=== PATIENT | male | born 1935 | race Caucasian/White ===

== ENCOUNTER → 2021-11-24 | Outpatient (CLI) | payer MEDICARE ==
--- NOTE | 2021-11-24 10:44 | Diagnostic Imaging Report ---
EXAMINATION: Abdominal aortic ultrasound. INDICATION: Abdominal aortic aneurysm. COMPARISON: There are no prior studies available for comparison. FINDINGS: There is aneurysmal dilatation of the mid abdominal aorta. The aorta measures approximately 3.7 x 4.5 cm in maximum AP and transverse diameters in this region (normal 3.0 x 3.0 cm or less). The distal abdominal aorta is not abnormally dilated measuring 2.3 x 2.3 cm. The proximal aorta measures 1.8 x 1.7 cm. There is mild dilatation of the origins of both common iliac arteries. The right common iliac artery measures 1.7 x 1.3 while the left is estimated to be 1.2 x 1.3 cm (normal 1.0 x 1.0 cm or less). There is no acute abnormality of the aorta. IMPRESSION: 1. 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 The aneurysm measures 3.7 x 4.5 cm. 2. There is no other aneurysmal dilatation of the infrarenal abdominal aorta. 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 3. There is no acute abnormality identified. Dictated by: Dictated on workstation # [id number]
== END ==
LOC: RAD 08:30
PROVIDERS: ATTEND Internal Medicine Cardiovascular Disease
DX: I71.4 Abdominal aortic aneurysm, without rupture (principal); I72.3 Aneurysm of iliac artery; I25.10 Atherosclerotic heart disease of native coronary artery without angina pectoris
CPT/HCPCS: 76775

== ENCOUNTER 2023-02-11 15:01 | Emergency (ER) | payer MEDICARE ==
[~2023-02-11] VITALS: Ht 177.8 cm; Wt 65.8 kg
--- NOTE | 2023-02-11 15:27 | ED GI ---
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 The patient has had dark stool for over a month. 3 weeks ago, his children witnessed the stool, and they did a home test for blood which was positive. Had blood work done at and the results came back earlier this week. Reportedly his hemoglobin was around 8 at that time. He has been feeling generally more weak, and now is using a walker, previously walked without difficulty. Called the clinic because he was not looking well, and they referred him here. Otherwise denying any chest pain, shortness of breath, abdominal pain, nausea, vomiting, diarrhea, fever, chills, focal weakness or numbness, or any other concerns. He has not been on any blood thinners for a few months, takes no NSAIDs, does not take aspirin. Denies any history of liver disease and does not drink alcohol. Allergies and Home Medications Allergies Coded Allergies: No Known Drug Allergies (Unverified , 02/11/23) Patient Home Medication List Home Medication List Reviewed: Yes Pantoprazole Sodium (Protonix) 40 Mg Tablet.dr 40 MG PO DAILY Prescribed by: RAMAN GARCIA on 02/11/23 1603 Review of Systems Review of Systems Constitutional: No fever EENTM: No Symptoms Reported Respiratory: No Symptoms Reported Cardiovascular: No Symptoms Reported Gastrointestinal: See HPI Genitourinary: No Symptoms Reported Musculoskeletal: no symptoms reported Skin: no symptoms reported Psychiatric/Neurological: Other (General weakness) Endocrine: No Symptoms Reported Hematologic/Lymphatic: No Symptoms Reported Past Sgqyaie-Gvwjtg-Akoqlv Hx Patient Social History Tobacco Use?: No Past Medical History Surgery/Hospitalization HX: CABG, partial bowel resection s/p diverticulitis Surgeries: Yes Physical Exam Vital Signs Vital Signs - First Documented 02/11/23 15:25 Temp 36.3 Pulse 68 Resp 16 B/P (MAP) 110/50 (70) Pulse Ox 100 O2 Delivery Room Air Capillary Refill : Height/Weight/BMI Height: '" Weight: lbs. oz. kg; BMI Method: General Appearance: WD/WN, no apparent distress, other (Pale) HEENT: PERRL/EOMI, normal ENT inspection, pharynx normal Neck: non-tender, full range of motion, supple, normal inspection Respiratory: chest non-tender, lungs clear, normal breath sounds, no respiratory distress, no accessory muscle use Cardiovascular: no edema, no murmur, irregularly irregular Gastrointestinal: normal bowel sounds, non tender, soft; No distended, No guarding, No rebound Rectal: other (External hemorrhoid, stool is brown and Hemoccult negative) Extremities: normal range of motion, non-tender, normal inspection, no pedal edema, no calf tenderness, normal capillary refill Back: normal inspection, no CVA tenderness Neurologic/Psychiatric: no motor/sensory deficits, alert, normal mood/affect Skin: warm/dry, other (Pale) Progress/Results/Core Measures Results/Orders Lab Results Laboratory Tests Test 02/11/23 15:38 02/11/23 15:39 Range/Units Prothrombin Time 14.3 12.2-14.7 SEC INR Comment 1.1 0.8-1.4 Activated Partial Thromboplast Time 34 24-35 SEC Sodium Level 136 135-145 MMOL/L Potassium Level 4.3 3.6-5.0 MMOL/L Chloride Level 106 98-107 MMOL/L Carbon Dioxide Level 13 L 21-32 MMOL/L Anion Gap 17 H 5-14 MMOL/L Blood Urea Nitrogen 65 H 7-18 MG/DL Creatinine 4.87 H 0.60-1.30 MG/DL Estimat Glomerular Filtration Rate 11 BUN/Creatinine Ratio 13 Glucose Level 189 H 70-105 MG/DL Calcium Level 7.9 L 8.5-10.1 MG/DL Corrected Calcium 8.2 L 8.5-10.1 MG/DL Total Bilirubin 0.2 0.1-1.0 MG/DL Aspartate Amino Transf (AST/SGOT) 127 H 5-34 U/L Alanine Aminotransferase (ALT/SGPT) 34 0-55 U/L Alkaline Phosphatase 204 H 40-136 U/L Total Protein 6.6 6.4-8.2 GM/DL Albumin 3.6 3.2-4.5 GM/DL Lipase 18 8-78 U/L White Blood Count 9.4 4.3-11.0 10^3/uL Red Blood Count 2.82 L 4.30-5.52 10^6/uL Hemoglobin 8.9 L 13.3-17.7 g/dL Hematocrit 27 L 40-54 % Mean Corpuscular Volume 95 80-99 fL Mean Corpuscular Hemoglobin 32 25-34 pg Mean Corpuscular Hemoglobin Concent 33 32-36 g/dL Red Cell Distribution Width 14.5 10.0-14.5 % Platelet Count 146 130-400 10^3/uL Mean Platelet Volume 11.2 9.0-12.2 fL Immature Granulocyte % (Auto) 0 % Neutrophils (%) (Auto) 72 42-75 % Lymphocytes (%) (Auto) 19 12-44 % Monocytes (%) (Auto) 6 0-12 % Eosinophils (%) (Auto) 2 0-10 % Basophils (%) (Auto) 1 0-10 % Neutrophils # (Auto) 6.7 1.8-7.8 10^3/uL Lymphocytes # (Auto) 1.8 1.0-4.0 10^3/uL Monocytes # (Auto) 0.6 0.0-1.0 10^3/uL Eosinophils # (Auto) 0.2 0.0-0.3 10^3/uL Basophils # (Auto) 0.1 0.0-0.1 10^3/uL Immature Granulocyte # (Auto) 0.0 0.0-0.1 10^3/uL My Orders Orders - RAMAN GARCIA MD Cbc With Automated Diff (02/11/23 15:22) Comprehensive Metabolic Panel (02/11/23 15:22) Lipase (02/11/23 15:22) Protime With Inr (02/11/23 15:22) Partial Thromboplastin Time (02/11/23 15:22) Ed Iv/Invasive Line Start (02/11/23 15:22) Monitor-Rhythm Ecg Trace Only (02/11/23 15:22) Pantoprazole Injection (Protonix Injecti (02/11/23 15:30) Ed Iv/Invasive Line Start (02/11/23 16:00) Ns (Ivpb) (Sodium Chloride 0.9%) (02/11/23 16:00) Medications Given in ED Current Medications Medications Dose Ordered Sig/Fredis Route Start Time Stop Time Status Last Admin Dose Admin Pantoprazole 40 mg ONCE ONCE IV 02/11/23 15:30 02/11/23 15:31 DC 02/11/23 15:47 40 MG Vital Signs/I&O 02/11/23 15:25 Temp 36.3 Pulse 68 Resp 16 B/P (MAP) 110/50 (70) Pulse Ox 100 O2 Delivery Room Air Progress Progress Note : Progress Note 87-year-old male with above history presenting for GI bleed. ABCs were intact and vitals were stable on presentation. Physical exam significant for him being pale, but his stool was brown and occult blood negative. He does have an external hemorrhoid with no evidence of bleeding. Hemoglobin today is 8.9 and HCT was 27. I contacted and got the trend of his hemoglobin. On Tuesday it was 8.6 (HCT of 25, on January 01 it was 9.3, and in November it was 9.8. His creatinine typically ranges around 4.5. Essentially his hemoglobin is at his baseline that its been up for 3 months, and it is higher than it was on Tuesday. He is certainly anemic, but not bad enough to require an emergent blood transfusion. Given that his stool is brown he is not showing any evidence of me of acute blood loss, I do not think he needs an emergent GI scope. He does have a colonoscopy scheduled here in the near future at . I do believe he is o therwise stable for discharge with outpatient follow-up. He was sent home with strict return precautions. Departure Impression Primary Impression: Symptomatic anemia Disposition: 01 HOME, SELF-CARE Condition: Stable Departure-Patient Inst. Decision time for Depature: 16:20 Referrals: SELFSYBIL MD (PCP) Primary Care Physician Patient Instructions: Gastrointestinal Bleeding (DC) Add. Discharge Instructions: We do think his dark stools the other day likely were a GI bleed. Today his stools are brown and when we tested them for blood they were negative. It is possible that his bleed stopped or it comes and goes. His hemoglobin today was 8.9, and on Tuesday it was 8.6. Last month it was 9.3 at . Essentially he has been around the same number which is reassuring. Were not seeing any evidence of rapid bleed. Unfortunately his hemoglobin is not low enough to require a blood transfusion at this time. We recommend continued follow-up with [facility] for the colonoscopy. If things worsen, we would recommend seeing his doctor sooner. Scripts Pantoprazole Sodium (Protonix) 40 Mg Tablet. 40 MG PO DAILY for 30 Days, #30 TAB Prov: RAMAN GARCIA MD 02/11/23 Work/School Note: Family Work Note Patient Received Medical Care In the Emergency Department On: Feb 11, 2023 Patient Will Be Able to Return to Work/School On: Feb 12, 2023 RAMAN GARCIA MD Feb 11, 2023 15:27
[2023-02-11] MEDS ORDERED: PANTOPRAZOLE 40 MG (PROTONIX) VIAL IV ONE (15:30)
[2023-02-11 15:33] LABS: BASOPHILS # (AUTO) 0.1 10^3/uL (0.0-0.1); BASOPHILS % (AUTO) 1 % (0-10); EOSINOPHILS # (AUTO) 0.2 10^3/uL (0.0-0.3); EOSINOPHILS % (AUTO) 2 % (0-10); HEMATOCRIT 27 % (40-54); HEMOGLOBIN 8.9 g/dL (13.3-17.7); LYMPHOCYTES # (AUTO) 1.8 10^3/uL (1.0-4.0); LYMPHOCYTES % (AUTO) 19 % (12-44); MEAN CORPUSCULAR HEMOGLOBIN 32 pg (25-34); MEAN CORPUSCULAR HGB CONC 33 g/dL (32-36); MEAN CORPUSCULAR VOLUME 95 fL (80-99); MEAN PLATELET VOLUME 11.2 fL (9.0-12.2); MONOCYTES # (AUTO) 0.6 10^3/uL (0.0-1.0); MONOCYTES % (AUTO) 6 % (0-12); NEUTROPHILS # (AUTO) 6.7 10^3/uL (1.8-7.8); NEUTROPHILS % (AUTO) 72 % (42-75); PLATELET COUNT 146 10^3/uL (130-400); WHITE BLOOD COUNT 9.4 10^3/uL (4.3-11.0)
[2023-02-11 15:44] LABS: INR 1.1 (0.8-1.4); PROTHROMBIN TIME PATIENT 14.3 SEC (12.2-14.7)
[2023-02-11 15:51] LABS: ALBUMIN 3.6 GM/DL (3.2-4.5); BILIRUBIN,TOTAL 0.2 MG/DL (0.1-1.0); CALCIUM 7.9 MG/DL (8.5-10.1); CREATININE SERUM 4.87 MG/DL (0.60-1.30); POTASSIUM 4.3 MMOL/L (3.6-5.0); TOTAL PROTEIN 6.6 GM/DL (6.4-8.2)
[2023-02-11] MEDS ORDERED: NS (IVPB) 250 ML IV ONE (16:00)
[2023-02-11] MEDS ORDERED: PANT40TA2 PO (16:03)
[2023-02-11 16:25] VITALS: BP 100/52
== END 2023-02-11 16:26 | disposition home or self-care (01) ==
LOC: EDUNIT# 15:01 → ER FS 15:03
DX: E11.22 Type 2 diabetes mellitus with diabetic chronic kidney disease (principal); I12.9 Hypertensive chronic kidney disease with stage 1 through stage 4 chronic kidney disease, or unspecified chronic kidney disease; N18.9 Chronic kidney disease, unspecified; D63.1 Anemia in chronic kidney disease; I48.91 Unspecified atrial fibrillation; T45.516A Underdosing of anticoagulants, initial encounter; Z91.128 Patient's intentional underdosing of medication regimen for other reason; Z79.01 Long term (current) use of anticoagulants; Z95.1 Presence of aortocoronary bypass graft
CPT/HCPCS: 36415; 80053; 82274; 83690; 85025; 85610; 85730; 93041